=== PATIENT | female | born 1945 | race Caucasian/White ===

== ENCOUNTER 2017-08-18 13:21 | Emergency (ER) | payer OTHER, MEDICARE ==
[~2017-08-18] VITALS: Ht 165.1 cm; Wt 80.7 kg
--- NOTE | 2017-08-18 14:08 | ED GENERAL ADULT ---
History of Present Illness General Chief Complaint: General Adult Stated Complaint: PT HAD PAIN LASTING FOR 15 MINUTES ,SHAKING Source: patient Exam Limitations: no limitations Vital Signs & Intake/Output Vital Signs & Intake/Output Vital Signs Date Time Temp Pulse Resp B/P B/P Pulse O2 O2 Flow FiO2 Mean Ox Delivery Rate 08/186 98.2 70 20 137/73 97 Room Air 08/18 1800 98.4 76 16 141/76 97 Room Air 08/18 1546 99.0 68 16 146/69 98 Room Air 08/18 1328 98.8 88 18 134/81 97 Room Air Allergies Coded Allergies: No Known Allergies (08/18/17) Reconcile Medications No Known Home Medications Triage Note: PT TO ER C/C 2 DAY HX OF INTERMITTENT CHEST PALP AND LEFT SIDED BACK/CHEST PAIN W/ PROFOUND WEAKNESS. DENIES SOB, NAUSEA, + DIZZINESS Triage Nurses Notes Reviewed? yes Onset: Abrupt Duration: hour(s): Timing: recent history HPI: 08/18/17 71-year-old female presents to the emergency department complaining of back pain and then left subcostal pain followed by a feeling of weakness and near syncope. She denies any chest pain currently. No focal weakness, no headache. (Sachin Nobles DO) Past History Travel History Traveled to [place] past 21 day No Medical History Any Pertinent Medical History? see below for history Cardiovascular: aortic aneurysm Surgical History Surgical History: non-contributory Psychosocial History What is your primary language Polish Tobacco Use: Current Daily Use Daily Tobacco Use Amount/Type: => 5 Cigarettes daily Family History Hx Contributory? No (Sachin Nobles DO) Review of Systems Review of Systems Constitutional: Denies: fever. EENTM: Denies: visual changes. Respiratory: Denies: short of breath. Cardiovascular: Reports: see HPI. GI: Reports: abdominal pain. Genitourinary: Reports: see HPI. Musculoskeletal: Reports: back pain. Skin: Denies: rash. Neurological/Psychological: Reports: see HPI. Hematologic/Endocrine: Reports: no symptoms. Immunologic/Allergic: Reports: no symptoms. (Sachin Nobles DO) Physical Exam Physical Exam General Appearance: well developed/nourished, alert, awake, anxious Head: atraumatic, normal appearance Eyes: Bilateral: normal appearance, PERRL, EOMI. Ears, Nose, Throat: normal pharynx, normal ENT inspection Neck: normal inspection, supple, full range of motion Respiratory: normal breath sounds, chest non-tender, no respiratory distress Cardiovascular: regular rate/rhythm Peripheral Pulses: 4+ radial (R), 4+ radial (L) Gastrointestinal: soft, non-tender Back: normal range of motion Extremities: normal inspection Neurologic/Psych: no motor/sensory deficits, awake, alert, oriented x 3 Skin: intact, normal color, warm/dry Core Measures ACS in differential dx? No CVA/TIA Diagnosis: No Sepsis Present: No Sepsis Focused Exam Completed? No (Sachin Nobles DO) Progress Differential Diagnoses I considered the following diagnoses in my evaluation of the patient: [Aortic dissection, acute coronary syndrome, dysrhythmia, pulmonary embolism] Plan of Care: Orders Procedure Date/time Status Heart Healthy Diet 08/19 B Active TROPONIN LEVEL 08/18 1899 Complete EKG 08/18 1899 Active TROPONIN LEVEL 08/18 1328 Complete COMPREHENSIVE METABOLIC PANEL 08/18 1328 Complete CBC WITHOUT DIFFERENTIAL 08/18 1328 Complete EKG 08/18 1328 Active Laboratory Tests 08/18/17 1915: Troponin I < 0.01 08/18/17 1402: Anion Gap 10, Estimated GFR > 60, BUN/Creatinine Ratio 20.0, Glucose 91, Calcium 9.6, Total Bilirubin 0.3, AST 23, ALT 38, Alkaline Phosphatase 86, Troponin I < 0.01, Total Protein 6.9, Albumin 4.1, Globulin 2.8, Albumin/Globulin Ratio 1.5, CBC w Diff NO MAN DIFF REQ, RBC 4.62, MCV 89.6, MCH 30.1, MCHC 33.6, RDW 13.1, MPV 7.6, Gran % 68.3, Lymphocytes % 23.6, Monocytes % 6.4, Eosinophils % 0.5, Basophils % 1.2, Absolute Granulocytes 5.6, Absolute Lymphocytes 1.9, Absolute Monocytes 0.5, Absolute Eosinophils 0, Absolute Basophils 0.1 08/18/17 The patient is pending repeat troponin. She was signed out to Dr. Torres at 7 PM Initial ED EKG: NSR, nonspecific ST T wave chg (Sachin Nobles DO) Differential Diagnoses I considered the following diagnoses in my evaluation of the patient: Comments: 2nd troponin negative. EKG without ischemic changes. (Mayo Torres MD) Departure Departure Condition: Stable Clinical Impression Primary Impression: Pre-syncope Departure Forms: Customer Survey General Discharge Information Prescriptions: Current Visit Scripts No Known Home Medications Comments IMPRESSION: 1. There is a fusiform abdominal aortic aneurysm measuring 3.2 cm transverse. There is no dissection of aorta and there is no aneurysmal leak. There is also atherosclerotic vascular calcification at the major branch vessels of aorta. 2. Status post cholecystectomy. 3. Mild diverticulosis of colon. No acute change of the bowel. DICTATED BY: Arsen Boston MD DATE/TIME DICTATED:08/18/171612 PUBLICATIONS MANAGER:LUIS DATE/TIME TRANSCRIBED:08/18/171612 CONFIDENTIAL, DO NOT COPY WITHOUT APPROPRIATE AUTHORIZATION. <Electronically signed in Other Vendor System> SIGNED BY: Arsen Boston MD 08/18/17 1629 08/18/17 7 PM Patient was signed out to Dr. Torres follow the repeat troponin (Sachin Nobles DO) Departure Time of Disposition: 2015 Disposition: HOME OR SELF CARE (Mayo Torres MD) Critical Care Note Critical Care Note Critical Care Time: non-applicable (Sachin Nobles DO)
[2017-08-18 14:18] LABS: ABSOLUTE BASOPHIL COUNT 0.1 /CUMM (0.0-0.2); ABSOLUTE EOSINOPHIL COUNT 0 /CUMM (0.0-0.7); ABSOLUTE GRANULOCYTE CT 5.6 /CUMM (1.4-6.5); ABSOLUTE LYMPH COUNT 1.9 /CUMM (1.2-3.4); ABSOLUTE MONOCYTE COUNT 0.5 /CUMM (0.10-0.60); BASOPHIL % 1.2 % (0.0-2.0); EOSINOPHIL % 0.5 % (0-5); GRANULOCYTE % 68.3 % (42.2-75.2); HEMATOCRIT 41.4 % (37-47); MEAN CORPUSCULAR HGB 30.1 PG (27.0-31.0); MEAN CORPUSCULAR HGB CONC 33.6 G/DL (33.0-37.0); MEAN CORPUSCULAR VOLUME 89.6 FL (81.0-99.0); MEAN PLATELET VOLUME 7.6 FL (7.4-10.4); PLATELET COUNT 346 /CUMM (130-400); RBC DISTRIBUTION WIDTH 13.1 % (11.5-14.5); RED BLOOD CELL CT 4.62 /CUMM (4.20-5.40); WHITE BLOOD CELL COUNT 8.2 /CUMM (4.8-10.8)
--- NOTE | 2017-08-18 15:15 | RADIOLOGY REPORT ---
EXAMINATION: XR CHEST CLINICAL INFORMATION: Palpitations. Chest and back pain. COMPARISON: None TECHNIQUE: 2 views of the chest were obtained. FINDINGS: The lungs are well expanded. There is no focal consolidation, edema, or effusion. No pneumothorax. The cardiomediastinal silhouette is within normal limits. No acute osseous abnormality. IMPRESSION: No acute pulmonary findings.
--- NOTE | 2017-08-18 16:29 | CT SCAN REPORT ---
EXAMINATION: CT ANGIOGRAM ABDOMEN AND PELVIS CLINICAL INFORMATION: Abdominal pain. Abdominal aortic aneurysm. Concern for abdominal aortic aneurysm rupture. COMPARISON: None TECHNIQUE: Helical CT scan of abdomen and pelvis. IV contrast: 95 mL Optiray 320 Oral contrast: None Reconstruction: Coronal and sagittal reformatted images performed at CT scanner by the technologist. FINDINGS: VASCULAR: There is a fusiform aneurysm of the distal abdominal aorta. This has a maximal transverse dimension of 3.2 cm. There is peripheral thrombus within the lumen of the aneurysm. The patent lumen within the aneurysm measures 2.2 x 2.6 cm. There is no dissection and no aneurysmal leak. There is diffuse atherosclerotic vascular wall calcifications of the aorta. 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 There are vascular wall calcification of the common iliac and internal iliac arteries bilaterally There is slight narrowing at the origin of the celiac axis with subtle poststenotic dilatation, sagittal image 67 (602). There is atherosclerotic vascular calcifications without stenosis at the origin of the SMA. There is enhancement of the right and left renal arteries are there are mild atherosclerotic vascular calcifications at the origin of the right renal artery without stenosis. LUNG BASES: The visualized lung bases are unremarkable. LIVER, GALLBLADDER, AND BILIARY TREE: The liver is normal in size, shape, and attenuation. No suspicious focal hepatic lesion or biliary ductal dilatation is present. There is a 6 mm sharply marginated hypodense lesion at the dome of the left lobe of liver consistent with hepatic cysts. Status post cholecystectomy. Extra hepatic CBD measures 9 mm. There is no calcified stone within the bile ducts. PANCREAS: No acute change of the pancreas. No mass. No pancreatic duct dilatation. SPLEEN: Spleen normal in size and contour. No focal lesion. ADRENAL GLANDS: Adrenal glands are normal in size. No focal mass. KIDNEYS AND URETERS: The kidneys are normal in size, shape, and attenuation. No hydronephrosis, hydroureter, or calculi seen. No perinephric stranding. BLADDER: Unremarkable. GASTROINTESTINAL TRACT: There is diverticula of the sigmoid colon but no diverticulitis. There is no acute change of the bowel. There is no bowel obstruction. No bowel wall thickening or edema. There is a moderate volume of stool throughout the colon. The appendix is normal.No acute abnormality the small bowel. There is a approximate 3 cm duodenal diverticulum adjacent the second portion of the duodenum. MESENTERY: No focal inflammation. No free fluid. No free air. ABDOMINAL WALL: No significant hernia is appreciated. LYMPH NODES: Normal. PELVIC VISCERA: Unremarkable. OSSEOUS STRUCTURES: Vacuum disc phenomena L4-L5. Multilevel degenerative spondylosis of lumbar spine facet joints IMPRESSION: 1. There is a fusiform abdominal aortic aneurysm measuring 3.2 cm transverse. There is no dissection of aorta and there is no aneurysmal leak. There is also atherosclerotic vascular calcification at the major branch vessels of aorta. 2. Status post cholecystectomy. 3. Mild diverticulosis of colon. No acute change of the bowel.
[2017-08-18 19:26] VITALS: BP 137/73
== END 2017-08-18 20:32 ==
LOC: ERH 13:21
PROVIDERS: Physician Assistant
DX: R55 Syncope and collapse (principal); R07.9 Chest pain, unspecified
CPT/HCPCS: 71046; 74174; 93005; 93010

== ENCOUNTER 2017-08-27 23:11 | Inpatient (IN) | payer OTHER, MEDICARE ==
[~2017-08-27] VITALS: Ht 167.6 cm; Wt 81.6 kg
--- NOTE | 2017-08-28 00:23 | ED NEURO DEFICIT/STROKE ---
History of Present Illness General Chief Complaint: General Adult Stated Complaint: "THINK IM HAVING A STROKE" DIZZY EPISODES PER PT Source: patient, family, old records Exam Limitations: no limitations Vital Signs & Intake/Output Vital Signs & Intake/Output Vital Signs Date Time Temp Pulse Resp B/P B/P Pulse O2 O2 Flow FiO2 Mean Ox Delivery Rate 08/28 0327 97.4 77 18 136/63 97 Room Air 08/27 2327 97.9 77 18 142/98 98 Room Air ED Intake and Output 08/28 0000 08/27 1200 Intake Total Output Total Balance Patient 178 lb Weight Weight Reported by Patient Measurement Method Allergies Coded Allergies: No Known Allergies (08/18/17) Reconcile Medications No Known Home Medications Triage Note: PT FROM HOME C/O AMS FOR THE PAST FEW WEEKS. PTS DAUGHTER STATES THAT PT HAS FELT LETHARGIC, BLURRED VISION, NAUSEA, AND DISORIENTED. PT WAS SEEN HERE 1 WEEK PRIOR FOR THE SAME S/S. PT IS A&0X3. PT IS SLOW TO REACT TO QUESTIONS. PTS BP ELEVATED IN TRIAGE 142/98, PT BASELINE 110/65. PT ALSO STATED AFTER DINNER A BURNING SENSATION IN HER CHEST THAT HAS SUBSIDED SINCE. Triage Nurses Notes Reviewed? yes HPI: Patient got up this morning and felt room spinning dizziness. There is no nausea. Slowly over the next hour the symptoms resolved. Patient was asymptomatic throughout the day but then tonight she laid in bed and again had room spinning dizziness. Patient became concerned that she might be having a stroke. Patient felt that her speech was slower than normal. Patient denies any weakness or numbness. There is no headache. She states that she has slight blurry vision but she was just recently diagnosed with glaucoma and the blurry vision is not worse than normal. Past History Travel History Traveled to [place] past 21 day No Medical History Any Pertinent Medical History? see below for history Neurological: NONE EENT: glaucoma Cardiovascular: aortic aneurysm Respiratory: NONE Gastrointestinal: NONE Hepatic: NONE Renal: NONE Musculoskeletal: NONE Psychiatric: NONE Endocrine: NONE Surgical History Surgical History: non-contributory Psychosocial History What is your primary language Wallisian Tobacco Use: Current Daily Use Daily Tobacco Use Amount/Type: => 5 Cigarettes daily ETOH Use: denies use Illicit Drug Use: denies illicit drug use Family History Hx Contributory? No Review of Systems Review of Systems Constitutional: Reports: no symptoms. EENTM: Reports: no symptoms. Respiratory: Reports: no symptoms. Cardiovascular: Reports: no symptoms. GI: Reports: no symptoms. Genitourinary: Reports: no symptoms. Musculoskeletal: Reports: no symptoms. Skin: Reports: no symptoms. Neurological/Psychological: Reports: see HPI. Hematologic/Endocrine: Reports: no symptoms. Immunologic/Allergic: Reports: no symptoms. All Other Systems: Reviewed and Negative Physical Exam Physical Exam General Appearance: well developed/nourished, alert, awake, mild distress Head: atraumatic, normal appearance Eyes: Bilateral: PERRL, EOMI, other (NYSTAGMUS TO RIGHT). Ears, Nose, Throat: normal ENT inspection, moist mucous membrane, hearing grossly normal Neck: normal inspection, supple, full range of motion Respiratory: normal breath sounds, chest non-tender, no respiratory distress, lungs clear Cardiovascular: regular rate/rhythm, normal peripheral pulses Gastrointestinal: normal bowel sounds, soft, non-tender Back: normal inspection, normal range of motion Extremities: normal range of motion Psychiatric: awake, alert, oriented x 3 Cranial Nerves: normal hearing, normal speech, PERRL Coordination/Gait: normal gait Motor/Sensory: no motor/sensory deficits Skin: intact, normal color, warm/dry Core Measures CVA/TIA Diagnosis: No Sepsis Present: No Sepsis Focused Exam Completed? No Progress Differential Diagnosis: drug intoxication, electrolyte imbalance, stroke, VERTIGO Plan of Care: Orders Procedure Date/time Status Heart Healthy Diet 08/28 B Active ED Holding Orders 08/28 328 Active Admit to inpatient 08/28 328 Active Vital Signs 08/28 328 Active Code Status 08/28 328 Active TROPONIN LEVEL 08/288 Complete COMPREHENSIVE METABOLIC PANEL 08/28 37 Complete CBC WITHOUT DIFFERENTIAL 08/28 37 Complete EKG 08/27 2335 Active Laboratory Tests 08/28/17 0051: Anion Gap 11, Estimated GFR > 60, BUN/Creatinine Ratio 22.9, Glucose 104 H, Calcium 9.8, Total Bilirubin 0.2, AST 26, ALT 39, Alkaline Phosphatase 82, Troponin I < 0.01, Total Protein 7.1, Albumin 4.2, Globulin 2.9, Albumin/ Globulin Ratio 1.4, CBC w Diff NO MAN DIFF REQ, RBC 4.59, MCV 89.2, MCH 30.2, MCHC 33.8, RDW 13.4, MPV 7.2 L, Gran % 67.1, Lymphocytes % 25.6, Monocytes % 5.8, Eosinophils % 0.9, Basophils % 0.6, Absolute Granulocytes 6.6 H, Absolute Lymphocytes 2.5, Absolute Monocytes 0.6, Absolute Eosinophils 0.1, Absolute Basophils 0.1 Diagnostic Imaging: Viewed by Me: CT Scan. Discussed w/RAD: CT Scan. Radiology Impression: PATIENT: ERIC STACK PRESENT AGE: 71 PATIENT ACCOUNT NO: [id number] : 47 LOCATION: [facility] ORDERING PHYSICIAN: Jose Arevalo MD SERVICE DATE: 08/27/17 EXAM TYPE: CAT - CT HEAD WO IV CONTRAST EXAMINATION: CT HEAD WITHOUT CONTRAST CLINICAL INFORMATION: Episode of confusion. Question TIA. COMPARISON: None. TECHNIQUE: Contiguous axial imaging was performed from the skull base to vertex without intravenous contrast. DLP: 630 mGy-cm. FINDINGS: The study is somewhat motion limited. There is no evidence of acute intracranial hemorrhage or territorial infarction. No abnormal mass effect or midline shift is seen. Dorsey to white matter differentiation is well preserved. No extra-axial fluid collections are identified. No hydrocephalus. No significant volume loss. There is no abnormal attenuation within the brain parenchyma. The osseous structures and soft tissues are normal. The mastoid air cells and visualized portions of the paranasal sinuses are well aerated. IMPRESSION: No acute intracranial pathology. DICTATED BY: Kwaku Siu MD DATE/TIME DICTATED:08/28/1716 LABELS MOLDER: LUIS DATE/TIME TRANSCRIBED:08/28/1716 CONFIDENTIAL, DO NOT COPY WITHOUT APPROPRIATE AUTHORIZATION. <Electronically signed in Other Vendor System> SIGNED BY: Kwaku Siu MD 08/28/17 0021 Initial ED EKG: NSR, no ST T wave changes Prior EKG: unchanged Comments: No relief after 2 doses of meclizine. Will try Valium. Departure Departure Disposition: STILL A PATIENT Condition: Stable Clinical Impression Primary Impression: Vertigo Referrals: Patient Has No Primary Care Dr (PCP/Family) Departure Forms: Customer Survey General Discharge Information Prescriptions: Current Visit Scripts No Known Home Medications Admission Note Spoke With: Sukumar Boone MD Documentation of Exam: Documentation of any treatments & extenuating circumstances including Concerns Regarding Discharge (functional status, medication knowledge or non-compliance, living conditions, etc.) that warrant an admission rather than observation: [ Telemetry monitoring, serial enzymes, neurology consultation, MRI]
[2017-08-28 01:10] LABS: ABSOLUTE BASOPHIL COUNT 0.1 /CUMM (0.0-0.2); ABSOLUTE EOSINOPHIL COUNT 0.1 /CUMM (0.0-0.7); ABSOLUTE GRANULOCYTE CT 6.6 /CUMM (1.4-6.5); ABSOLUTE LYMPH COUNT 2.5 /CUMM (1.2-3.4); ABSOLUTE MONOCYTE COUNT 0.6 /CUMM (0.10-0.60); BASOPHIL % 0.6 % (0.0-2.0); EOSINOPHIL % 0.9 % (0-5); GRANULOCYTE % 67.1 % (42.2-75.2); HEMATOCRIT 40.9 % (37-47); MEAN CORPUSCULAR HGB 30.2 PG (27.0-31.0); MEAN CORPUSCULAR HGB CONC 33.8 G/DL (33.0-37.0); MEAN CORPUSCULAR VOLUME 89.2 FL (81.0-99.0); MEAN PLATELET VOLUME 7.2 FL (7.4-10.4); PLATELET COUNT 326 /CUMM (130-400); RBC DISTRIBUTION WIDTH 13.4 % (11.5-14.5); RED BLOOD CELL CT 4.59 /CUMM (4.20-5.40); WHITE BLOOD CELL COUNT 9.8 /CUMM (4.8-10.8)
--- NOTE | 2017-08-28 05:30 | History & Physical ---
Juan J Rich 08/28/17 0529: General Information and HPI Exam Limitations: no limitations History of Present Illness: Ms. Welch is a pleasant 71-year-old female with a past medical history of aortic aneurysm and glaucoma. She presents to the ED after having what she describes as a dizzy spell/mini stroke. She woke up this morning and when she was getting out of bed she felt a sudden sense of the world spinning so dramatic that she had to lie back down for about 30 minutes. She then got up and tried to go to the bathroom and had considerable trouble due to the dizziness. She noticed that her speech was much slower than normal and that it took a significant amount of time to find words compared to her baseline. Her daughters also agree that her speech and idea-formation was delayed. She was aware of the impediement and denies any confusion. She has been having palpitations for the past 2 weeks. She had her daughters also believe that she has been experiencing vertigo on and off for the past 8 months symptoms were never bad like today. She endorses a slight headache, fatigue and neck pain. She also has some blurry vision but she believes that is related to her glaucoma which she started taking medication for 3 days ago, patient denies any nausea, vomiting, weakness, numbness, chest pain, shortness of breath, loss of consciousness, loss of bladder or bowel functions. Patient has a significant family history of strokes especially on the mother's side. Allergies/Medications Home Med list No Known Home Medications Past History Travel History Traveled to [place] past 21 day No Medical History Blood Transfusion Hx: Yes Neurological: NONE EENT: glaucoma Cardiovascular: aortic aneurysm Respiratory: NONE Gastrointestinal: NONE Hepatic: NONE Renal: NONE Musculoskeletal: NONE Psychiatric: NONE Endocrine: NONE Blood Disorders: NONE Cancer(s): melanoma CLEANING ASSOCIATE/Reproductive: NONE History of MRSA: No History of VRE: No History of CDIFF: Yes Isolation History: Standard Surgical History Surgical History: non-contributory Past Family/Social History Psychosocial History Where do you live? Home Services at Home: None Smoking Status: Current Everyday Smoker (30 years) ETOH Use: denies use Illicit Drug Use: denies illicit drug use Review of Systems Review of Systems Constitutional: Reports: see HPI, weakness. Denies: chills, diaphoresis. EENTM: Reports: visual changes, eye pain. Respiratory: Reports: short of breath. Denies: no symptoms. GI: Reports: nausea. Denies: constipation, diarrhea, distention. Genitourinary: Reports: no symptoms. Musculoskeletal: Reports: neck pain. Skin: Reports: no symptoms. Neurological/Psychological: Reports: headache, numbness. Denies: depressed, dementia, petit mal seizures, tingling, tremors. Exam & Diagnostic Data Last 24 Hrs of Vital Signs/I&O Vital Signs Date Time Temp Pulse Resp B/P B/P Pulse O2 O2 Flow FiO2 Mean Ox Delivery Rate 08/28 0638 97.6 77 20 146/94 95 Room Air 08/28 0347 97.5 73 18 137/68 96 Room Air 08/28 0327 97.4 77 18 136/63 97 Room Air 08/27 2327 97.9 77 18 142/98 98 Room Air Intake & Output 08/28 1600 08/28 0800 08/28 0000 Intake Total Output Total Balance Patient 178 lb 178 lb Weight Weight Reported by Patient Reported by Patient Measurement Method Physical Exam General Appearance Alert, Oriented X3, Cooperative, No Acute Distress Skin No Rashes Skin Temp/Moisture Exam: Warm/Dry Sepsis Skin Exam (color): Normal for Ethnicity, Cyanotic HEENT Atraumatic, PERRLA, EOMI, Mucous Membr. moist/pink Neck Supple, No JVD Lymphatic Axillary nl, Cervical nl Cardiovascular Regular Rate, Normal S1, Normal S2 Lungs Clear to Auscultation Abdomen Normal Bowel Sounds, Soft, No Tenderness Neurological Normal Speech, Strength at 5/5 X4 Ext, Normal Tone, Sensation Intact, Cranial Nerves 3-12 NL, Reflexes 2+ Extremities No Clubbing, No Cyanosis, No Edema Last 24 Hrs of Labs/Fareed: Laboratory Tests 08/28/17 0712: Troponin I < 0.01 08/28/17 0051: Anion Gap 11, Estimated GFR > 60, BUN/Creatinine Ratio 22.9, Glucose 104 H, Hemoglobin A1c Pending, Calcium 9.8, Total Bilirubin 0.2, AST 26, ALT 39, Alkaline Phosphatase 82, Troponin I < 0.01, Total Protein 7.1, Albumin 4.2, Globulin 2.9, Albumin/Globulin Ratio 1.4, Triglycerides 253 H, Cholesterol 218 H, LDL Cholesterol, Calc 133 H, HDL Cholesterol 35 L, Cholesterol/HDL Ratio 6 H, CBC w Diff NO MAN DIFF REQ, RBC 4.59, MCV 89.2, MCH 30.2, MCHC 33.8, RDW 13.4 , MPV 7.2 L, Gran % 67.1, Lymphocytes % 25.6, Monocytes % 5.8, Eosinophils % 0.9, Basophils % 0.6, Absolute Granulocytes 6.6 H, Absolute Lymphocytes 2.5, Absolute Monocytes 0.6, Absolute Eosinophils 0.1, Absolute Basophils 0.1 Assessment/Plan Assessment: Vitals on admission were temp 97.9, HR 77, RR 18, BP 142/98 and O2 sats 98% on room air. Labs Unremarkable. CT Head negative for any acute Pathology. Assessment: Ms. Welch is a pleasant 71-year-old female with a past medical history of aortic aneurysm and glaucoma. She presents to the ED after having what she describes as a dizzy spell/mini stroke. Problems: 1. Vertigo 2. Possible TIA vs Stroke -Admit to telemetry floor -Start on aspirin -Meclizine as needed -Troponins and EKG 3 -PT consult to evaluate -Doppler carotids bilaterally -MRA head and neck -Consult neurology -Consult PT -Bedside swallow eval, advance diet as rec -DVT prophylaxis -Full Code As Ranked By This Provider Problem List: 1. Vertigo Core Measures/Misc (11/07) Acute Coronary Syndrome ACS Diagnosis: No Congestive Heart Failure Congestive Heart Failure Diagnosis No Cerebrovascular Accident CVA/TIA Diagnosis: Yes Swallow Evaluation Pass Current/Past Hx AFib/AFlutter No VTE (View Protocol) VTE Risk Factors Age>40 No Mechanical VTE Prophylaxis d/t N/A MechProphylax Ordered No VTE Pharm Prophylaxis d/t NA PharmProphylax ordered Sepsis (View protocol) Sepsis Present: No If YES complete Sepsis Event Note If YES complete Sepsis Event Note Ilda JACKSON,Lise 08/28/17 0554: Core Measures/Misc (11/07) Sepsis (View protocol) If YES complete Sepsis Event Note If YES complete Sepsis Event Note Resident Review Statement Resident Statement: examined this patient, discussed with international logistics coordinator, agreed with international logistics coordinator, discussed with family, reviewed EMR data (avail), discussed with nursing , reviewed images Other Findings: Mrs. Welch is a 71-year-old lady with past medical history significant for glaucoma and abdominal aortic aneurysm only presents with dizziness starting the morning of presentation. According to the patient she woke up in her usual state of health but when she tried to get up from the bed she felt extremely dizzy and and felt like the whole room was upside down. She also blacked out for a few seconds but never lost consciousness. She is recently diagnosed with glaucoma and has baseline blurry vision, unsure if her vision was any worse from her baseline at that time. The daughter also mentions "to and fro" motion of her eyes and feeling tired and lethargic afterwards. She also reports occasional palpitations that has been going on for the past 2 weeks. She did feel palpitations at the time of dizziness as well. Apparently the episodes of dizziness has been going on and off for the past 8 months. Denies any facial droop, numbness or weakness or loss of sensation in any part of the body, confusion, or any seizure-like activity. She did feel drained/lethargic afterwards. Episode lasted for 20-30 minutes and her dizziness got better but never went away completely. She had another similar episode of dizziness when she was trying to go to bed around 10 PM she felt like she was having a stroke which got her worried and she decided to come to the ER. She continues to have the dizziness and difficulty finding words. Vitals on admission were temp 97.9, HR 77, RR 18, BP 142/98 and O2 sats 98% on room air. Labs Unremarkable. CT Head negative for any acute Pathology. Problem List; 1. Dizziness 2. ?? TIA, r/o stroke - Patient has a strong family Hx of TIA/ stroke and patient continues to have the dizziness and have difficulty finding words. - Admit to Telemetry Floor - Give 1 dose of Aspirin and Statin - Meclizine as needed for dizziness - Obtain MRA head and neck - Obtain echocardiogram - Troponins and EKG 3 - Check lipid panel and A1c level - Neurology consult - PT consult. - Patient passed bedside swallow, start on regular diet. - Nicotine Patch as patient is a current smoker. DVT Prophylaxis; ALPS and S/C Lovenox Patient is full code. Sukumar Boone MD 08/28/17 0603: General Information and HPI MD Statement: I have seen and personally examined ERIC WELCH and documented this H&P. The patient is a 71 year old F who presented with a patient stated chief complaint of [dizziness]. Source of Information: patient Allergies/Medications Allergies: Coded Allergies: No Known Allergies (08/18/17) Past History Medical History EENT: glaucoma Surgical History Surgical History: cholecystectomy, hysterectomy Past Family/Social History Psychosocial History Smoking Status: Current Everyday Smoker (1PPD) ETOH Use: denies use Illicit Drug Use: denies illicit drug use Employment History Employment Retired Review of Systems Review of Systems Constitutional: Reports: see HPI. Exam & Diagnostic Data Last 24 Hrs of Vital Signs/I&O Vital Signs Date Time Temp Pulse Resp B/P B/P Pulse O2 O2 Flow FiO2 Mean Ox Delivery Rate 08/28 0347 97.5 73 18 137/68 96 Room Air 08/28 0327 97.4 77 18 136/63 97 Room Air 08/27 2327 97.9 77 18 142/98 98 Room Air Intake & Output 08/28 0800 08/28 0000 08/27 1600 Intake Total Output Total Balance Patient 178 lb 178 lb Weight Weight Reported by Patient Reported by Patient Measurement Method Physical Exam General Appearance Alert, Oriented X3, Cooperative, No Acute Distress Skin No Rashes HEENT Atraumatic, PERRLA, EOMI Neck Supple, No JVD Lymphatic Axillary nl, Cervical nl Cardiovascular Regular Rate, Normal S1, Normal S2, No Murmurs Lungs Clear to Auscultation, Normal Air Movement Abdomen Normal Bowel Sounds, Soft, No Tenderness, No Hepatospenomegaly, No Masses Neurological Normal Gait, Normal Speech, Strength at 5/5 X4 Ext, Normal Tone, Sensation Intact, Cranial Nerves 3-12 NL, Reflexes 2+ Extremities No Clubbing, No Cyanosis, No Edema Last 24 Hrs of Labs/Fareed: Laboratory Tests 08/28/17 0051: Anion Gap 11, Estimated GFR > 60, BUN/Creatinine Ratio 22.9, Glucose 104 H, Hemoglobin A1c Pending, Calcium 9.8, Total Bilirubin 0.2, AST 26, ALT 39, Alkaline Phosphatase 82, Troponin I < 0.01, Total Protein 7.1, Albumin 4.2, Globulin 2.9, Albumin/Globulin Ratio 1.4, Triglycerides Pending, Cholesterol Pending, LDL Cholesterol, Calc Pending, HDL Cholesterol Pending, Cholesterol/HDL Ratio Pending, CBC w Diff NO MAN DIFF REQ, RBC 4.59, MCV 89.2, MCH 30.2, MCHC 33.8, RDW 13.4, MPV 7.2 L, Gran % 67.1, Lymphocytes % 25.6, Monocytes % 5.8, Eosinophils % 0.9, Basophils % 0.6, Absolute Granulocytes 6.6 H, Absolute Lymphocytes 2.5, Absolute Monocytes 0.6, Absolute Eosinophils 0.1, Absolute Basophils 0.1 Core Measures/Misc (11/07) Sepsis (View protocol) If YES complete Sepsis Event Note If YES complete Sepsis Event Note Attending MD Review Statement Attending Statement Attending MD Statement: examined this patient, discuss w/resident/PA/TEAM SPORTS SALES ASSOCIATE, amended to note Attending Assessment/Plan: This patient is a 71-year-old white female who is only on medications for glaucoma, has a lifelong history of tobacco abuse and a family history significant for strokes. She has been having some difficulty for almost 8 months. This week has been particularly difficult with episodes of dizziness. Today was particularly bad when she awoke this morning with the room spinning. The symptoms resolved but as soon as she went to bed tonight they returned and she was brought to the emergency department. While in the emergency department her vital signs were stable with a mild elevation in her blood pressure. Her labs are essentially normal. Treatment with Antivert and Valium did not resolve the vertigo. The CT scan of her head did not demonstrate any acute intracranial pathology. The patient will be placed on telemetry, started on aspirin and neurology has been consult. She will be worked up with carotid ultrasound, echo , neurology consult and will likely need an MRI/MRA of her head and neck.
[2017-08-28 06:38] VITALS: BP 146/94
--- NOTE | 2017-08-28 09:53 | PN- Att Addend ---
Attending Addendum Attending Brief Note Patient seen and examined. Sitting up eating breakfast. No events overnight reported by nursing staff. She is in normal sinus rhythm with no events on telemetry monitoring. Patient reports that for the past few weeks she has been having blurry vision. She states she was recently diagnosed with glaucoma was prescribed eyedrops and has seen no significant improvement after using them for the past 3 days following the initial prescription. In addition to the symptoms she reports feeling of being off balance and almost falling. This morning she continues to report dizziness. She reports no improvement with use of meclizine overnight. Orthostatic vitals this morning were 138/90 sitting and 118/80 standing. Vital Signs Date Time Temp Pulse Resp B/P B/P Pulse O2 O2 Flow FiO2 Mean Ox Delivery Rate 08/28 0638 97.6 77 20 146/94 95 Room Air 08/28 0347 97.5 73 18 137/68 96 Room Air 08/28 0327 97.4 77 18 136/63 97 Room Air 08/27 2327 97.9 77 18 142/98 98 Room Air General appearance: Well-developed and not in any acute distress. HEENT: Anicteric, no pallor, pupils equal and reactive. No nystagmus. Neck: Supple with no jugular venous distention. Heart: S1-S2 regular with no audible murmur. Lungs: Adequate and symmetric air entry bilaterally with no added sounds. Abdomen: Nondistended with normal bowel sounds. Soft, nontender with no palpable masses. Extremities: No pedal edema. No cyanosis. Skin: Intact Laboratory Tests 08/28/17 0712: Troponin I < 0.01 08/28/17 0051: Anion Gap 11, Estimated GFR > 60, BUN/Creatinine Ratio 22.9, Glucose 104 H, Hemoglobin A1c Pending, Calcium 9.8, Total Bilirubin 0.2, AST 26, ALT 39, Alkaline Phosphatase 82, Troponin I < 0.01, Total Protein 7.1, Albumin 4.2, Globulin 2.9, Albumin/Globulin Ratio 1.4, Triglycerides 253 H, Cholesterol 218 H, LDL Cholesterol, Calc 133 H, HDL Cholesterol 35 L, Cholesterol/HDL Ratio 6 H, CBC w Diff NO MAN DIFF REQ, RBC 4.59, MCV 89.2, MCH 30.2, MCHC 33.8, RDW 13.4 , MPV 7.2 L, Gran % 67.1, Lymphocytes % 25.6, Monocytes % 5.8, Eosinophils % 0.9, Basophils % 0.6, Absolute Granulocytes 6.6 H, Absolute Lymphocytes 2.5, Absolute Monocytes 0.6, Absolute Eosinophils 0.1, Absolute Basophils 0.1 Problems: 1. Dizziness. Plan: -Patient has positive orthostatic blood pressure changes this morning. She does not appear volume depleted. She is certainly not bleeding. Recommend hydration with normal saline at 1 25 cc an hour and repeating orthostatic blood pressure in a.m. -Follow-up echocardiogram to rule out structural heart disease. -Add cortisol level to a.m. labs (7AM LABS). If levels are less than 10 obtain cosyntropin stimulation test and endocrinology consult. -Repeat a.m. fasting lipid panel
[2017-08-28 15:17] VITALS: BP 128/84
--- NOTE | 2017-08-28 16:06 | Cons- Neurology ---
General Information and HPI Consulting Request Date of Consult: 08/28/17 Requested By: Sukumar Boone MD History of Present Illness: 71-year-old female with at least a several month history of intermittent vertigo invariably occurring with change of head position. When perfectly still, she is not dizzy. She was admitted after similar symptoms upon awakening and attempting to arise. She will also admit to intermittent palpitations and "brain fog" as of late. She has no prior history of stroke. Imaging upon admission was negative. Allergies/Medications Allergies: Coded Allergies: No Known Allergies (08/18/17) Home Med List: No Known Home Medications Review of Systems Review of Systems: Notable for vertigo, intermittent palpitations and brain fog. 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 Home Services at Home: None Smoking Status: Current Everyday Smoker (30 years) ETOH Use: denies use Illicit Drug Use: denies illicit drug use Employment History Employment: Retired Exam & Diagnostic Data Vital Signs and I&O Vital Signs Date Time Temp Pulse Resp B/P B/P Pulse O2 O2 Flow FiO2 Mean Ox Delivery Rate 08/28 1517 97.7 76 18 128/84 95 Room Air 08/28 0638 97.6 77 20 146/94 95 Room Air / 0347 97.5 73 18 137/68 96 Room Air / 0327 97.4 77 18 136/63 97 Room Air 08/27 2327 97.9 77 18 142/98 98 Room Air Intake & Output 08/28 1600 /08 0800 07/08 0000 Intake Total 460 Output Total Balance 460 Intake, IV 10 Intake, Oral 450 Patient 178 lb 178 lb Weight Weight Reported by Patient Reported by Patient Measurement Method Pleasant middle-aged female in no acute distress. The head was normocephalic and atraumatic. Higher cortical function was grossly intact. Speech was fluent. Pupils were equal and reactive. Extraocular movements were full. There was no nystagmus in primary garcia of gaze however with performance of the DixHallpike maneuver, head down and to the right, we note the presence of striking rotatory nystagmus which presented after a brief latency and resolved within 15 seconds. Facial strength and sensation was intact. Hearing was grossly normal. Tongue was midline. Motor examination showed no drift of the upper extremities. There was no focal or lateralizing weakness. Deep tendon reflexes were symmetric. Plantar responses were flexor. Sensory examination was normal to primary modalities. Fine finger movements and rapid alternating movements performed normally. There was no ataxia on [id number] testing. Assessment/Plan Assessment: #1 benign paroxysmal positional vertigo #2 anxiety Recommendations: The patient should undergo a course of vestibular rehabilitation for canalith repositioning. I do not believe that further neurodiagnostic studies are indicated. I have attempted to reassure the patient that this indeed appears to be a benign situation and not indicative of stroke syndrome. Please feel free to call with any further questions. Consult Acknowledgment - Thank you for your consult request.
[2017-08-28 22:59] VITALS: BP 132/82
[2017-08-29 06:47] VITALS: BP 142/82
--- NOTE | 2017-08-29 07:52 | PN- Housestaff ---
Dania Arevalo 08/29/17 0751: Subjective Follow-up For: bpv Complaints: she felt dizzy when getting up from bed/laying down Subjective: Positional vertigo Review of Systems Constitutional: Reports: see HPI. Objective Last 24 Hrs of Vital Signs/I&O Vital Signs Date Time Temp Pulse Resp B/P B/P Pulse O2 O2 Flow FiO2 Mean Ox Delivery Rate 08/29 1418 97.9 78 18 150/80 95 Room Air 08/29 0647 97.7 73 18 142/82 96 Room Air 08/28 2259 97.6 71 18 132/82 96 Room Air Intake & Output 08/29 1600 08/29 0800 08/29 0000 Intake Total 600 595 Output Total Balance 600 595 Intake, IV 375 Intake, Oral 600 220 Patient 180 lb Weight Physical Exam General Appearance: Alert, Oriented X3, Cooperative, No Acute Distress Skin: No Rashes, No Breakdown, No Significant Lesion Skin Temp/Moisture Exam: Cool/Dry HEENT: Atraumatic, Nystagmus upon checking EOMI while laying in bed Neck: Supple Cardiovascular: Regular Rate, Normal S1, Normal S2, No Murmurs Lungs: Clear to Auscultation, Normal Air Movement Abdomen: Normal Bowel Sounds, Soft, No Tenderness Neurological: Normal Speech, Strength at 5/5 X4 Ext, Normal Tone Extremities: No Clubbing, No Cyanosis, No Edema Assessment/Plan Assessment: Pt is a 71-year-old lady with PMH of glaucoma and abdominal aortic aneurysm, presents with dizziness x1day. She tried to get up from bed upon waking and felt v dizzy, felt the whole room was upside down. She also blacked out for a few seconds but never lost consciousness. The daughter also mentions "to and fro " motion of her eyes and feeling tired and lethargic afterwards. The Episode lasted for 20-30 minutes and her dizziness got better but never went away completely. The episodes of dizziness have been going on for the pasgt 8 mo. Vitals: temp 97.7, pulse 73, HR 18, bp 142/82,96%on RA Orthostatic vitals: Sitting bp 112/70 HR 74. Standing bp 108/78 HR 87. Labs:wbc 5.8, hgb 13.6, hct 39.7, plt 288, na 144, k 4.5, cl 110, bicarb 24, bun 14, cr 0.6, cortisol AM 5.5, Cortisol PM after cosyntropin 22.3. B12 576, Folate 10.7, TSH 1.020, Free T4 1.02 USG Carotid: 1. RIGHT: Minimal, nonhemodynamically significant stenosis of the proximal right internal carotid artery corresponding to a 0-49% stenosis by velocity criteria. 2. LEFT: Minimal, nonhemodynamically significant stenosis of the proximal left internal carotid artery corresponding to a 0-49% stenosis by velocity criteria. 3. No evidence for hemodynamically significant stenosis in the external carotid arteries. 4. A 1.5 cm cystic structure was incidentally noted within the right parotid gland. This can be further evaluated with a dedicated ultrasound of this region if clinically indicated. MRA Head and neck w and wo contrast: No focal stenoses, aneurysms or vascular malformations are demonstrated in the cervical or intracranial vasculature. Problems: 1. BPV 2. Orthostatic hypotension 3. Rt thyroid lobe enlargement 4. Parotid gland cystic lesion Plan: -She is off tele -Neurology consult -MRA head and neck with & wo contrast -endo consult -Cosyntropin stim test -TSH, Free T4, Anti TPO, Anti-thyroglobulin abs -Orthostatic vitals -Vestibular rehab -PT consult -Nicotine patch -Mini Mental Status examination -Diet: regular -DVT Prophylaxis; ALPS and S/C Lovenox -code:full code Problem List: 1. Vertigo Pain Ratin Pain Location: none Pain Goal: Remain pain free Pain Plan: n/a Tomorrow's Labs & Rationales: not needed Kyung Álvarez MDrosario 08/29/17 1345: Attending MD Review Statement Attending Statement Attending MD Statement: examined this patient, discuss w/resident/PA/FINISH SAW OPERATOR, agreed w/resident/PA/FINISH SAW OPERATOR, reviewed EMR data (avail), discussed with nursing, discussed with case mgmt, amended to note Attending Assessment/Plan: Patient seen and examined. No issues overnight reported by nursing staff. No events on telemetry monitoring. She continues to report dizziness. Worse with position changes. She was seen by the neurology service yesterday was noted to have nystagmus following Sheridan-Hallpike maneuver. This morning she is very hesitant about position changes. She reports that her symptoms are more manageable when she gets up out of bed in a very slow and calculated manner. Cortisol level was checked yesterday. She does have a cortisol level added onto her a.m. labs. There appears that her cortisol level may have been drawn at around 1 AM. The value obtained will be normal for the time of day. She is scheduled to have a cosyntropin stim vision test today. MRI of the head with MRA of the head and neck done today shows no evidence of an acute stroke. Carotid vessels show no significant disease. Incidentally noted on carotid ultrasound is a questionable cystic lesion in the parotid gland. She was seen by the endocrinology service today. She is found to have enlargement of the right lobe of the thyroid. Ultrasound of the thyroid has been ordered. Patient complains of decreased memory and she is very concerned about this. Problems: 1. Vertigo; appears to be secondary to BPV. 2. Orthostatic hypotension 3. Enlargement of the right thyroid lobe. 4. Parotid gland cystic lesion. Plan: -Discontinue telemetry monitoring. -PT/OT evaluation. -Obtain thyroid ultrasound. -Outpatient ENT referral and follow-up. -Follow-up results of cosyntropin solution test.
[2017-08-29 08:19] LABS: ABSOLUTE BASOPHIL COUNT 0 /CUMM (0.0-0.2); ABSOLUTE EOSINOPHIL COUNT 0.1 /CUMM (0.0-0.7); ABSOLUTE LYMPH COUNT 2.2 /CUMM (1.2-3.4); ABSOLUTE MONOCYTE COUNT 0.5 /CUMM (0.10-0.60); BASOPHIL % 0.6 % (0.0-2.0); EOSINOPHIL % 1.3 % (0-5); GRANULOCYTE % 51.2 % (42.2-75.2); HEMATOCRIT 39.7 % (37-47); MEAN CORPUSCULAR HGB 30.2 PG (27.0-31.0); MEAN CORPUSCULAR HGB CONC 34.3 G/DL (33.0-37.0); MEAN CORPUSCULAR VOLUME 88.1 FL (81.0-99.0); MEAN PLATELET VOLUME 7.5 FL (7.4-10.4); PLATELET COUNT 288 /CUMM (130-400); RBC DISTRIBUTION WIDTH 13.5 % (11.5-14.5); RED BLOOD CELL CT 4.51 /CUMM (4.20-5.40); WHITE BLOOD CELL COUNT 5.8 /CUMM (4.8-10.8)
--- NOTE | 2017-08-29 08:55 | Cons- Endocrinology ---
General Information and HPI Consulting Request Date of Consult: 08/29/17 Requested By: medical team Reason for Consult: low cortisol Source of Information: patient, family, old records Exam Limitations: no limitations History of Present Illness: This 71-year-old woman came to the emergency room because of a sensation that the room was going around when she was getting out of bed. She noticed that her balance was poor. She also felt the that it bothered her speech. She complains of some difficulty with memory. She has had some previous episodes of vertigo. The patient was in the emergency room on August 18, 2017 with an episode of abdominal and back pain and a feeling of extreme weakness at that time. Her CT scan of the abdomen was negative. More recent studies show CT scan scan of the head revealing no significant abnormalities. The patient does smoke a pack a day. Interestingly her mother has a history of thyroid disease and has had thyroid surgery The patient's cortisol level at 1 AM was 5.5. Allergies/Medications Allergies: Coded Allergies: No Known Allergies (08/18/17) Home Med List: No Known Home Medications Current Medications: Current Medications Sig/Koki Start time Last Medication Dose Route Stop Time Status Admin Acetaminophen 650 MG Q6P PRN 08/28 0500 AC PO Atorvastatin Calcium 80 MG ONCE ONE 08/28 1700 DC / PO 08/28 1701 1739 Cosyntropin 0.25 MG 1200 08/29 1200 AC IV 08/29 1201 Enoxaparin Sodium 40 MG DAILY 08/28 0900 AC 08/29 SC 0903 Nicotine 14 MG DAILY 08/29 0900 AC TOP Oxycodone/ 1 TAB Q6P PRN 08/28 0500 DC Acetaminophen PO Sodium Chloride 1,000 ML Q8H 08/28 1345 DC / IV 08/28 2144 1500 Review of Systems Review of Systems Constitutional: Denies: chills, fever. Cardiovascular: Denies: chest pain. Respiratory: Denies: short of breath. Genitourinary: Denies: dysuria. Skin: Denies: lesions. Neurological/Psychological: Reports: anxiety, cognitive dysfunction, other (vertigo). Past History Travel History Traveled to [place] past 21 day No Medical History Blood Transfusion Hx: Yes Neurological: NONE EENT: glaucoma Cardiovascular: aortic aneurysm Respiratory: NONE Gastrointestinal: NONE Hepatic: NONE Renal: NONE Musculoskeletal: NONE Psychiatric: NONE Endocrine: NONE Blood Disorders: NONE Cancer(s): melanoma DEVELOPMENT TEAM LEAD/Reproductive: NONE Surgical History Surgical History: cholecystectomy, hysterectomy Psychosocial History Where Do You Live? Home Services at Home: None Smoking Status: Current Everyday Smoker (30 years) ETOH Use: denies use Illicit Drug Use: denies illicit drug use Employment History Employment: Retired Exam & Diagnostic Data Last 24 Hrs of Vital Signs/I&O Vital Signs Date Time Temp Pulse Resp B/P B/P Pulse O2 O2 Flow FiO2 Mean Ox Delivery Rate 08/29 0547 97.7 73 18 142/82 96 Room Air 08/28 2259 97.6 71 18 132/82 96 Room Air 08/28 1517 97.7 76 18 128/84 95 Room Air Intake & Output 08/29 1600 08/29 0800 08/29 0000 Intake Total 595 Output Total Balance 595 Intake, IV 375 Intake, Oral 220 Patient 180 lb Weight Physical Exam General Appearance: alert, awake, comfortable Head: normal appearance Neck: right lobe of thyroid enlarged Respiratory: normal breath sounds Cardiovascular: regular rate/rhythm Gastrointestinal: normal bowel sounds, soft Extremities: normal inspection Neurologic/Psych: awake, alert, oriented x 3 Labs/Fareed Results: Laboratory Tests 08/29 08/28 08/28 0628 1325 0712 Chemistry Sodium (137 - 145 mmol/L) 144 Potassium (3.5 - 5.1 mmol/L) 4.5 Chloride (98 - 107 mmol/L) 110 H Carbon Dioxide (22 - 30 mmol/L) 24 Anion Gap (5 - 16) 10 BUN (7 - 17 mg/dL) 14 Creatinine (0.5 - 1.0 mg/dL) 0.6 Estimated GFR (>60 ml/min) > 60 BUN/Creatinine Ratio (7 - 25 %) 23.3 Troponin I (< 0.11 ng/ml) < 0.01 < 0.01 Triglycerides (<150 mg/dL) 182 H Cholesterol (<200 MG/DL) 197 LDL Cholesterol, Calc (65 - 129 mg/dL) 131 H HDL Cholesterol (40 - 60 mg/dL) 30 L Cholesterol/HDL Ratio (0.00 - 4.23 %) 7 H Hematology CBC w Diff NO MAN DIFF REQ WBC (4.8 - 10.8 /CUMM) 5.8 RBC (4.20 - 5.40 /CUMM) 4.51 Hgb (12.0 - 16.0 G/DL) 13.6 Hct (37 - 47 %) 39.7 MCV (81.0 - 99.0 FL) 88.1 MCH (27.0 - 31.0 PG) 30.2 MCHC (33.0 - 37.0 G/DL) 34.3 RDW (11.5 - 14.5 %) 13.5 Plt Count (130 - 400 /CUMM) 288 MPV (7.4 - 10.4 FL) 7.5 Gran % (42.2 - 75.2 %) 51.2 Lymphocytes % (20.5 - 51.1 %) 38.2 Monocytes % (1.7 - 9.3 %) 8.7 Eosinophils % (0 - 5 %) 1.3 Basophils % (0.0 - 2.0 %) 0.6 Absolute Granulocytes (1.4 - 6.5 /CUMM) 3.0 Absolute Lymphocytes (1.2 - 3.4 /CUMM) 2.2 Absolute Monocytes (0.10 - 0.60 /CUMM) 0.5 Absolute Eosinophils (0.0 - 0.7 /CUMM) 0.1 Absolute Basophils (0.0 - 0.2 /CUMM) 0 07/08 0051 Chemistry Sodium (137 - 145 mmol/L) 142 Potassium (3.5 - 5.1 mmol/L) 4.1 Chloride (98 - 107 mmol/L) 105 Carbon Dioxide (22 - 30 mmol/L) 26 Anion Gap (5 - 16) 11 BUN (7 - 17 mg/dL) 16 Creatinine (0.5 - 1.0 mg/dL) 0.7 Estimated GFR (>60 ml/min) > 60 BUN/Creatinine Ratio (7 - 25 %) 22.9 Glucose (65 - 99 mg/dL) 104 H Hemoglobin A1c (4.2 - 5.8 %) 5.9 H Calcium (8.4 - 10.2 mg/dL) 9.8 Total Bilirubin (0.2 - 1.3 mg/dL) 0.2 AST (14 - 36 U/L) 26 ALT (9 - 52 U/L) 39 Alkaline Phosphatase (<127 U/L) 82 Troponin I (< 0.11 ng/ml) < 0.01 Total Protein (6.3 - 8.2 g/dL) 7.1 Albumin (3.5 - 5.0 g/dL) 4.2 Globulin (1.9 - 4.2 gm/dL) 2.9 Albumin/Globulin Ratio (1.1 - 2.2 %) 1.4 Triglycerides (<150 mg/dL) 253 H Cholesterol (<200 MG/DL) 218 H LDL Cholesterol, Calc (65 - 129 mg/dL) 133 H HDL Cholesterol (40 - 60 mg/dL) 35 L Cholesterol/HDL Ratio (0.00 - 4.23 %) 6 H Cortisol AM Sample (4.46 - 22.7 ug/dL) 5.5 Hematology CBC w Diff NO MAN DIFF REQ WBC (4.8 - 10.8 /CUMM) 9.8 RBC (4.20 - 5.40 /CUMM) 4.59 Hgb (12.0 - 16.0 G/DL) 13.8 Hct (37 - 47 %) 40.9 MCV (81.0 - 99.0 FL) 89.2 MCH (27.0 - 31.0 PG) 30.2 MCHC (33.0 - 37.0 G/DL) 33.8 RDW (11.5 - 14.5 %) 13.4 Plt Count (130 - 400 /CUMM) 326 MPV (7.4 - 10.4 FL) 7.2 L Gran % (42.2 - 75.2 %) 67.1 Lymphocytes % (20.5 - 51.1 %) 25.6 Monocytes % (1.7 - 9.3 %) 5.8 Eosinophils % (0 - 5 %) 0.9 Basophils % (0.0 - 2.0 %) 0.6 Absolute Granulocytes (1.4 - 6.5 /CUMM) 6.6 H Absolute Lymphocytes (1.2 - 3.4 /CUMM) 2.5 Absolute Monocytes (0.10 - 0.60 /CUMM) 0.6 Absolute Eosinophils (0.0 - 0.7 /CUMM) 0.1 Absolute Basophils (0.0 - 0.2 /CUMM) 0.1 Assessment/Plan Assessment/Plan This patient entered the hospital with episode of severe vertigo. She continues to have imbalance upon movement and describes the room turning around. Of concern also is the patient feels this has affected her memory. The patient has been seen by neurology who feels this is consistent with benign positional vertigo. With regard to her cortisol level, this was drawn at 1 AM. This is actually a normal to slightly elevated cortisol level for that time of day. The ac of cortisol secretion is midnight. We can do a Cortrosyn stimulation test giving 1 ampule of Cortrosyn IV bolus and flushing it in. Thereafter we should measure the patient's cortisol level 1 hour later. Most likely this will be completely normal. I do not feel this patient has adrenal insufficiency. The patient does have some enlargement of the right lobe of her thyroid. She also has a family history of thyroid disease. We should do an ultrasound of the thyroid. In addition we should measure the patient's free T4, TSH, and antithyroglobulin and antithyroid peroxidase antibodies. With regard to her decreased memory we should a Mini-Mental status exam. We should also do a vitamin B12 level as well as the thyroid function tests mentioned above. Consult Acknowledgment - Thank you for your consult request.
--- NOTE | 2017-08-29 11:37 | ULTRASOUND REPORT ---
EXAMINATION: US DUPLEX BILATERAL CAROTID CLINICAL INFORMATION: Dizziness. Question TIA.. COMPARISON: No similar prior examinations available for comparison. TECHNIQUE: Real-time ultrasound and Doppler techniques (integrating B-mode 2D vascular images, Doppler spectral analysis and color flow Doppler imaging) were utilized to interrogate the extracranial carotid and vertebral arteries bilaterally. The degree of stenosis determined by criteria similar to NASCET. FINDINGS: Right side: 1. Small amount of hypoechoic plaque is seen in the ECA/ICA region. 2. The common carotid artery velocity is 57 cm/s. 3. The internal carotid artery velocities are 44 cm/s systolic and 20 cm/s diastolic. 4. The external carotid artery velocity is 96 cm/s. Left side: 1. Small amount of calcified plaque is seen in the ECA/ICA region. 2. The common carotid artery velocity is 48 cm/s. 3. The internal carotid artery velocities are 67 cm/s systolic and 31 cm/s diastolic. 4. The external carotid artery velocity is 65 cm/s. ADDITIONAL FINDINGS: 1. The vertebral arteries show antegrade flow. 2. Incidentally noted is a 1.5 x 1.0 x 1.3 cm hypoechoic focus within the right parotid gland. IMPRESSION: 1. RIGHT: Minimal, nonhemodynamically significant stenosis of the proximal right internal carotid artery corresponding to a 0-49% stenosis by velocity criteria. 2. LEFT: Minimal, nonhemodynamically significant stenosis of the proximal left internal carotid artery corresponding to a 0-49% stenosis by velocity criteria. 3. No evidence for hemodynamically significant stenosis in the external carotid arteries. 4. A 1.5 cm cystic structure was incidentally noted within the right parotid gland. This can be further evaluated with a dedicated ultrasound of this region if clinically indicated.
--- NOTE | 2017-08-29 12:27 | MRI REPORT ---
EXAMINATION MRA HEAD WITHOUT CONTRAST MRA NECK WITH AND WITHOUT CONTRAST CLINICAL INFORMATION: Dizziness. Assess for stroke. COMPARISON: CT scan of the head 08/28/2017. TECHNIQUE: 3D [id number] MR angiography was performed through the brain and axial source images were reviewed along with rotating MIPs. 2-D [id number] as well as bolus enhanced MR angiography was performed through the cervicocerebral vasculature. The degree of stenosis is based off NASCET criteria. Source images were reviewed along with MIPs. Angled MIPs and volumetric reconstructions were independently generated and archived by the 3D laboratory. Intravenous contrast: 8 mL Gadavist. FINDINGS: MRA NECK: There is a common origin of the left common carotid and brachiocephalic arteries off the aortic arch, which is a normal variant. The proximal arch vessels are nonstenotic. The vertebral arteries are codominant and both vertebral arteries are widely patent from their ostia until they berumen the dura. The common carotid arteries are widely patent. The carotid bifurcations appear normal. There is no significant stenosis. The cervical internal carotid arteries demonstrate uniform and normal caliber. MRA HEAD: In the anterior circulation, the distal internal carotid arteries within the neck appear normal. The intracranial internal carotid arteries and their bifurcations appear normal. The middle and anterior cerebral arteries bilaterally demonstrate normal caliber with no evidence of focal stenosis, aneurysm or vascular malformation. Normal arborization of the middle cerebral artery branches. The anterior communicating artery is normal. In the posterior circulation, the left vertebral artery is slightly dominant. The vertebral arteries intradurally have normal caliber. The basilar artery appears normal. The left posterior cerebral artery arises primarily off the anterior circulation, which is a normal variant. The posterior cerebral arteries have normal caliber. IMPRESSION: 1. No focal stenoses, aneurysms or vascular malformations are demonstrated in the cervical or intracranial vasculature.
--- NOTE | 2017-08-29 12:29 | ECHOCARDIOGRAM REPORT ---
ERIC STACK Age: 71 : 1945 Gender: F Exam Date: 08/28/2017 09:34 Exam Location: 1 [facility] Ht (in): 66 Wt (lb): 178 BSA: 1.96 BP: 146 / 94 Ordering Physician: Lise Gonsales MD Referring Physician: Lise Gonsales MD Technologist: Ifrah De JULISSA Room Number: 178 Indications: STROKE Rhythm: Sinus Technical Quality: Technically difficult study FINDINGS Left Ventricle Normal size left ventricle. Mild concentric left ventricular hypertrophy. Normal left ventricular ejection fraction visually estimated at >60%. No obvious regional wall motion abnormalities. Right Ventricle Normal right ventricular size and function. Right Atrium Normal right atrial size. Left Atrium Normal left atrial size. Mitral Valve Mild mitral annular calcification. Mitral valve thickened. Trace mitral regurgitation. Aortic Valve Aortic valve mildly thckened.no aortic stenosis. No aortic regurgitation. Tricuspid Valve Tricuspid valve not well visualized, grossly normal. Trace tricuspid regurgitation. Pulmonic Valve Pulmonic valve not well visualized, grossly normal. Trace pulmonic regurgitation. Pericardium Small pericardial effusion. No echo evidence of tamponade. Great Vessels Normal size aortic root. CONCLUSIONS Normal size left ventricle. Mild concentric left ventricular hypertrophy. Normal left ventricular ejection fraction visually estimated at > 60%. Trace mitral regurgitation. Trace tricuspid regurgitation. Small pericardial effusion. No echo evidence of tamponade. Brandon Ritchie M.D. (Electronically Signed) Final Date: 29 August 2017 12:24 MEASUREMENTS (Male / Female) Normal Values 2D ECHO LV Diastolic Diameter PLAX 3.8 cm 4.2 - 5.9 / 3.9 - 5.3 cm LV Systolic Diameter PLAX 2.4 cm 2.1 - 4.0 cm LV Fractional Shortening PLAX 36.8 % 25 - 46 % LV Ejection Fraction 2D Teich 67.5 % IVS Diastolic Thickness 1.3 cm LVPW Diastolic Thickness 1.3 cm LV Relative Wall Thickness 0.7 RV Internal Dim ED PLAX 2.0 cm 1.9 - 3.8 cm LVOT Diameter 1.9 cm Aortic Root Diameter 3.1 cm LA Volume 36.0 cm 18 - 58 / 22 - 52 cm Ascending Aorta Diameter 3.2 cm DOPPLER AV Peak Velocity 136.0 cm/s AV Peak Gradient 7.4 mmHg AV Mean Velocity 89.7 cm/s AV Mean Gradient 4.0 mmHg AV Velocity Time Integral 29.2 cm LVOT Peak Velocity 101.0 cm/s LVOT Peak Gradient 4.1 mmHg LVOT Mean Velocity 67.0 cm/s LVOT Mean Gradient 2.0 mmHg LVOT Velocity Time Integral 24.6 cm LVOT Stroke Volume 69.7 cm AV Area Cont Eq vti 2.4 cm AV Area Cont Eq pk 2.1 cm MV Peak Velocity 92.2 cm/s MV Peak Gradient 3.4 mmHg MV Mean Velocity 47.2 cm/s MV Mean Gradient 1.0 mmHg Mitral E Point Velocity 74.0 cm/s Mitral A Point Velocity 74.5 cm/s Mitral E to A Ratio 1.0 MV PHT Velocity 83.9 cm/s MV Deceleration [place] 260.0 cm/s MV Pressure Half Time 96.8 ms MV Area PHT 2.3 cm MV Deceleration Time 261.0 ms PV Peak Velocity 67.2 cm/s PV Peak Gradient 1.8 mmHg PV Mean Velocity 49.1 cm/s PV Mean Gradient 1.0 mmHg PV Velocity Time Integral 15.3 cm LV E' Lateral Velocity 8.8 cm/s Mitral E to LV E' Lateral Ratio 8.4 LV E' Septal Velocity 8.3 cm/s Mitral E to LV E' Septal Ratio 8.9
[2017-08-29 14:18] VITALS: BP 150/80
--- NOTE | 2017-08-29 20:12 | ULTRASOUND REPORT ---
EXAMINATION: US THYROID CLINICAL INFORMATION: Right thyroid enlargement.. COMPARISON: None TECHNIQUE: Linear transducer pierson-scale and color Doppler examination with attention to the region of the thyroid. FINDINGS: Limited study as patient has severe vertigo and unable to changes head position or radiopaque were. Patient getting very dizzy. SIZE: Measurements of the thyroid lobes and nodules are given in sagittal, anteroposterior and transverse dimensions respectively. Right Thyroid Lobe: 3.7 x 1.0 x 1.2 cm, volume 2.3 mL. Left Thyroid Lobe: 3.8 x 1.3 x 1.4 cm, volume 3.6 mL. Isthmus: 0.3 cm in maximum AP dimension. PARENCHYMA: The gland echotexture is homogeneous. Thyroid vascularity is normal.. RIGHT THYROID LOBE: There is a solitary nodule in the lower pole. It measures 0.8 x 0.4 x 0.4 cm. It is heterogenous, irregular margins with no intranodular flow. ISTHMUS: No nodules. LEFT THYROID LOBE: Solitary nodule in the lower pole. It is hypoechoic, irregular margins with echogenic calcification and no intranodular flow. NODES: No lymphadenopathy is seen in the tissue surrounding the thyroid gland. IMPRESSION: 2 small subcentimeter none suspicious nodules thyroid gland. Otherwise unremarkable thyroid ultrasound. Recommend continued yearly ultrasound surveillance.
[2017-08-29 22:00] VITALS: BP 112/70
--- NOTE | 2017-08-30 07:05 | PN- Housestaff ---
Dania Arevalo 08/30/17 0705: Subjective Follow-up For: BPV Complaints: no complaints Tele-Events Since Last Visit: Mode sinus rhythm. Heart rate 57-69 Subjective: She complains of some dizziness when getting up from the bed. But it is very much improved. Review of Systems Constitutional: Reports: see HPI. Objective Last 24 Hrs of Vital Signs/I&O Vital Signs Date Time Temp Pulse Resp B/P B/P Pulse O2 O2 Flow FiO2 Mean Ox Delivery Rate 08/30 0706 97.9 71 18 138/86 95 08/29 2200 98.4 74 20 112/70 96 Room Air Intake & Output 08/30 1600 08/30 0800 08/30 0000 Intake Total 580 800 480 Output Total Balance 580 800 480 Intake, IV 20 Intake, Oral 560 800 480 Physical Exam General Appearance: Alert, Oriented X3, Cooperative, No Acute Distress Skin: No Rashes, No Breakdown, No Significant Lesion HEENT: Atraumatic Neck: Supple Cardiovascular: Regular Rate, Normal S1, Normal S2, No Murmurs Lungs: Clear to Auscultation, Normal Air Movement Abdomen: Normal Bowel Sounds, Soft, No Tenderness Neurological: Normal Gait, Normal Speech, Strength at 5/5 X4 Ext, Normal Tone Extremities: No Clubbing, No Cyanosis, No Edema Assessment/Plan Assessment: Pt is a 71-year-old lady with PMH of glaucoma and abdominal aortic aneurysm, presents with dizziness x1day. She tried to get up from bed upon waking and felt v dizzy, felt the whole room was upside down. She also blacked out for a few seconds but never lost consciousness. The daughter also mentions "to and fro " motion of her eyes and feeling tired and lethargic afterwards. The Episode lasted for 20-30 minutes and her dizziness got better but never went away completely. The episodes of dizziness have been going on for the past 8 mo. Vitals: Temp 97.9, pulse 71, respiratory rate 18, BP 138/86, 95% On room air Problems: 1. BPV 2. Orthostatic hypotension 3. Rt thyroid lobe enlargement 4. Parotid gland cystic lesion Plan: -She is off tele -discharge today care physician -Lifestyle changes, thigh-high compression stockings recommended after discharge -Meclizine as needed after discharge for vertigo -Diet: regular -DVT Prophylaxis; ALPS and S/C Lovenox -code:full code Problem List: 1. Vertigo Pain Ratin Pain Location: None Pain Goal: Remain pain free Pain Plan: n/a Tomorrow's Labs & Rationales: manny Álvarez MD,Jamie 08/30/17 1147: Attending MD Review Statement Attending Statement Attending MD Statement: examined this patient, discuss w/resident/PA/FIBERGLASS TECHNICIAN, agreed w/resident/PA/FIBERGLASS TECHNICIAN, reviewed EMR data (avail), discussed with nursing, discussed with case mgmt, amended to note Attending Assessment/Plan: Patient seen and examined. This morning she continued to complain of dizziness with movement. She also complained of dizziness at rest. She was seen by the physical therapy service and Shabana maneuver was performed. She was reported significant improvement. She is very excited and eager to go home. The pain of her dizziness was impeded secondary to BPPV. she is medically stable to be discharged home with prescribed Antivert to use as needed in the future. She still has orthostatic blood pressure changes. she is not volume depleted. We have recommended that she use compression stockings. She is to follow-up with her primary care provider as an outpatient. She has been given referral to Dr. brasher for follow-up as she wishes to change her primary care provider. She had an appropriate response to cosyntropin stimulation. She certainly does not have primary adrenal insufficiency. She also does not have stigmata of secondary adrenal insufficiency. She was noted to have small new nodules on the thyroid gland which appeared benign. She is to follow-up with endocrinology service for abnormal sonogram imaging. She is also to follow-up with the ENT service as an outpatient for further incidentally noted parotid cyst.
[2017-08-30 07:06] VITALS: BP 138/86
--- NOTE | 2017-08-30 07:45 | PN- Endocrinology ---
Assessment/Plan Endoscopy Assessment: The patient is feeling improved. She did have a Cortrosyn stimulation test yesterday and her cortisol post stimulation was 22.3. This is a normal response. We have ruled out adrenal insufficiency. The ultrasound of the patient's thyroid shows some tiny nodules none of which are suspicious. The function of the thyroid is normal. Plan: Suggest that the patient have a repeat thyroid ultrasound in one year as an outpatient. No further workup is necessary from the endocrine point of view. Subjective Subjective: Feels improved Review of Systems Constitutional: Denies: chills, fever. Cardiovascular: Denies: chest pain. Respiratory: Denies: cough, short of breath. Gastrointestinal: Denies: abdominal pain, nausea. Objective Last 24 Hrs of Vital Signs/I&O Vital Signs Date Time Temp Pulse Resp B/P B/P Pulse O2 O2 Flow FiO2 Mean Ox Delivery Rate 08/30 07 97.9 71 18 138/86 95 07/ 2200 98.4 74 20 112/70 96 Room Air 08/29 1418 97.9 78 18 150/80 95 Room Air Intake & Output 08/30 0800 07 0000 08/29 1600 Intake Total 480 600 Output Total Balance 480 600 Intake, Oral 480 600 Vital Signs Date Time Temp Pulse Resp B/P B/P Pulse O2 O2 Flow FiO2 Mean Ox Delivery Rate 08/30 0706 97.9 71 18 138/86 95 / 2200 98.4 74 20 112/70 96 Room Air 07/ 1418 97.9 78 18 150/80 95 Room Air Intake & Output 08/30 0800 08/30 0000 / 1600 Intake Total 480 600 Output Total Balance 480 600 Intake, Oral 480 600 Physical Exam General Appearance: alert, awake, comfortable Neck: normal inspection Respiratory: normal breath sounds Cardiovascular: regular rate/rhythm Current Medications: Current Medications Sig/Koki Start time Last Medication Dose Route Stop Time Status Admin Acetaminophen 650 MG Q6P PRN 08/28 0500 AC PO Cosyntropin 0.25 MG 1200 08/29 1200 DC 08/29 IV 08/29 1201 1220 Enoxaparin Sodium 40 MG DAILY 08/28 899 AC 08/29 SC 0903 Nicotine 14 MG DAILY 08/29 899 AC 08/29 TOP 1143 Patient Medication 1 ED ONE ONE 08/29 1245 IN 08/30 Teaching ED 08/29 1246 0659 Results Pertinent Lab/Fareed Results: Laboratory Tests 08/29 08/29 08/29 1320 1145 1100 Chemistry Vitamin B12 (239 - 931 pg/mL) 576 Folate (2.76 - 20.0 ng/mL) 10.7 Cortisol PM Sample (1.7 - 14.1) 22.3 H 5.1 ACTH Stimulation Cancelled 08/29 08/28 0628 1325 Chemistry Sodium (137 - 145 mmol/L) 144 Potassium (3.5 - 5.1 mmol/L) 4.5 Chloride (98 - 107 mmol/L) 110 H Carbon Dioxide (22 - 30 mmol/L) 24 Anion Gap (5 - 16) 10 BUN (7 - 17 mg/dL) 14 Creatinine (0.5 - 1.0 mg/dL) 0.6 Estimated GFR (>60 ml/min) > 60 BUN/Creatinine Ratio (7 - 25 %) 23.3 Troponin I (< 0.11 ng/ml) < 0.01 Triglycerides (<150 mg/dL) 182 H Cholesterol (<200 MG/DL) 197 LDL Cholesterol, Calc (65 - 129 mg/dL) 131 H HDL Cholesterol (40 - 60 mg/dL) 30 L Cholesterol/HDL Ratio (0.00 - 4.23 %) 7 H TSH (0.270 - 4.200 uIU/mL) 1.020 Free T4 (0.78 - 2.44 ng/dL) 1.02 Hematology CBC w Diff NO MAN DIFF REQ WBC (4.8 - 10.8 /CUMM) 5.8 RBC (4.20 - 5.40 /CUMM) 4.51 Hgb (12.0 - 16.0 G/DL) 13.6 Hct (37 - 47 %) 39.7 MCV (81.0 - 99.0 FL) 88.1 MCH (27.0 - 31.0 PG) 30.2 MCHC (33.0 - 37.0 G/DL) 34.3 RDW (11.5 - 14.5 %) 13.5 Plt Count (130 - 400 /CUMM) 288 MPV (7.4 - 10.4 FL) 7.5 Gran % (42.2 - 75.2 %) 51.2 Lymphocytes % (20.5 - 51.1 %) 38.2 Monocytes % (1.7 - 9.3 %) 8.7 Eosinophils % (0 - 5 %) 1.3 Basophils % (0.0 - 2.0 %) 0.6 Absolute Granulocytes (1.4 - 6.5 /CUMM) 3.0 Absolute Lymphocytes (1.2 - 3.4 /CUMM) 2.2 Absolute Monocytes (0.10 - 0.60 /CUMM) 0.5 Absolute Eosinophils (0.0 - 0.7 /CUMM) 0.1 Absolute Basophils (0.0 - 0.2 /CUMM) 0 Immunology Thyroglobulin Antibody (< 61 U/mL) 32 Thyroid Peroxidase Ab (< 61 U/mL) 35
--- NOTE | 2017-08-30 08:15 | Patient Discharge Instructions ---
Discharge Instructions General Discharge Information You were seen/treated for: Benign positional vertigo Watch for these problems: vertigo If worse, please visit your nearest emergency room Special Instructions: -Please have a repeat thyroid ultrasound in one year as an outpatient. -Please see your primary care physician within a week of discharge: Dr. Rob at [facility] -F/u with Occupational Therapy Diet Continue normal diet: Yes Activity Full Activity/No Limits: Yes (As tolerated ) Activity Self Limited: Yes Acute Coronary Syndrome Inclusion Criteria At DC or during hospital stay patient has or had the following: ACS DIAGNOSIS No Discharge Core Measures Meds if any: Prescribed or Continued at Discharge Meds if any: NOT Prescribed or Continued at Discharge Congestive Heart Failure Inclusion Criteria At DC or during hospital stay patient has or had the following: CHF DIAGNOSIS No Discharge Core Measures Meds if any: Prescribed or Continued at Discharge Meds if any: NOT Prescribed or Continued at Discharge Cerebrovascular accident Inclusion Criteria At DC or during hospital stay patient has or had the following: CVA/TIA Diagnosis No Discharge Core Measures Meds if any: Prescribed or Continued at Discharge Meds if any: NOT Prescribed or Continued at Discharge Venous thromboembolism Inclusion Criteria VTE Diagnosis No VTE Type NONE VTE Confirmed by (Test) NONE Discharge Core Measures - Per Current guidelines, there needs to be overlap - treatment for the first 5 days of Warfarin therapy. - If discharged on Warfarin prior to 5 days of - overlap therapy, the patient will need to be - assessed for post discharge needs including - *Post discharge parental anticoagulation - *Warfarin and/or parental anticoagulation education - *Follow up date to check INR post discharge At least 5 days overlap therapy as Inpatient No Meds if any: Prescribed or Continued at Discharge Note: Overlap Therapy is Warfarin and Anticoagulant Meds if any: NOT Prescribed or Continued at Discharge
[2017-08-30] MEDS ORDERED: MECLIZINE HCL12.5 M1 PO ×2 (11:25→11:47)
[2017-08-30] MEDS ORDERED: NICOTINE PATCH1 EAC2 TOP (11:47)
--- NOTE | 2017-08-30 16:20 | Discharge Summary ---
Visit Information Visit Dates Admission Date: 08/28/17 Discharge Date: 08/30/17 Hospital Course Course Attending Physician: Jamie Álvarez MD Primary Care Physician: Dr. Rob Hospital Course: Ms. Welch is a pleasant 71-year-old female with a past medical history of aortic aneurysm and glaucoma. She presented to the ED after having a "dizzy spell/mini stroke". She woke up the morning of August 28 and when she was getting out of bed she felt a sudden sense of the world spinning so dramatic that she had to lie back down for about 30 minutes. She then got up and tried to go to the bathroom and had considerable trouble due to the dizziness. She noticed that her speech was much slower than normal and that it took a significant amount of time to find words compared to her baseline. Her daughters also agreed that her speech and idea-formation was delayed. She was aware of the impediement and denies any confusion. She has been having palpitations for the past 2 weeks. She also believed that she has been experiencing vertigo on and off for the past 8 months symptoms were never bad like today. She endorsed a slight headache , fatigue and neck pain. She also had some blurry vision that she believed is related to her glaucoma which she started taking medication for 3 days ago, patient denies any nausea, vomiting, weakness, numbness, chest pain, shortness of breath, loss of consciousness, loss of bladder or bowel functions. Patient has a significant family history of strokes especially on the mother's side. Problem list: Benign paroxysmal positional vertigo Hospital course: No events on telemetry monitoring. She reported that her dizziness was worse with position changes. she had nystagmus following [place]-Hallpike maneuver. Given her positive orthostatic that was a possible adrenal insufficiency suspicion. Patient had cosyntropin stimulation test came back normal. Patient also had thyroid ultrasound which showed a nodule in her thyroid and also 1.5 cm nodule in her parotid gland. Patient was advised to follow-up with her primary care physician for the right parotid gland lesion She had orthostatic hypotension. So we recommended wearing thigh-high compression stockings and following up with her primary care physician. She will continue doing occupational therapy as outpatient for her vertigo. She will follow-up with the repatcher for the thyroid nodule found on her sonogram. She was given meclizine as needed per oral Allergies: Coded Allergies: No Known Allergies (08/18/17) Significant Procedures: Head CT: No acute intracranial pathology. Echocardiogram: Normal size left ventricle. Mild concentric left ventricular hypertrophy. Normal left ventricular ejection fraction visually estimated at > 60%. Trace mitral regurgitation. Trace tricuspid regurgitation. Small pericardial effusion. No echo evidence of tamponade. Carotid Doppler study: 1. RIGHT: Minimal, nonhemodynamically significant stenosis of the proximal right internal carotid artery corresponding to a 0-49% stenosis by velocity criteria. 2. LEFT: Minimal, nonhemodynamically significant stenosis of the proximal left internal carotid artery corresponding to a 0-49% stenosis by velocity criteria. 3. No evidence for hemodynamically significant stenosis in the external carotid arteries. 4. A 1.5 cm cystic structure was incidentally noted within the right parotid gland. This can be further evaluated with a dedicated ultrasound of this region if clinically indicated. Head MRI/neck MRA: No focal stenoses, aneurysms or vascular malformations are demonstrated in the cervical or intracranial vasculature. Thyroid ultrasound: 2 small subcentimeter none suspicious nodules thyroid gland. Otherwise unremarkable thyroid ultrasound. Recommend continued yearly ultrasound surveillance. Disposition Summary Disposition Principal Diagnosis: BPPV Additional Diagnosis: None Discharge Disposition: home or self care Discharge Instructions General Discharge Information Code Status: Full Code Patient's Diet: Regular diet Patient's Activity: As tolerated Follow-Up Instructions/Appts: Watch for these problems: -If dizziness is worse, please visit your nearest emergency room Special Instructions: -Please have a repeat thyroid ultrasound in one year as an outpatient. -Please see your primary care physician within a week of discharge: Dr. Rob at [facility] -F/u with physical therapy Medications at Discharge Discharge Medications: Start taking the following new medications: Meclizine HCl (Meclizine HCl) 12.5 MG TABLET 1 Tablet ORAL THREE TIMES DAILY as needed for VERTIGO Qty = 90 No Refills Instructions: . Nicotine (Nicotine Patch) 14 MG/24 HOUR PATCH.TD24 14 Milligram On the skin DAILY Qty = 30 No Refills Instructions: . Copies To: Liane JACKSON,Liane
== END 2017-08-30 12:15 | DRG 312 ==
LOC: ERH 23:11 → ERHI 08-28 03:29 → 1NO 08-28 03:29 → ENRESERV 08-28 04:35 → 1NO 08-28 04:54 → ENPENDDIS 08-30 11:26 → 1NO 08-30 12:15
PROVIDERS: Emergency Medicine; Hospitalist
DX: I95.1 Orthostatic hypotension (principal); H81.10 Benign paroxysmal vertigo, unspecified ear; H40.9 Unspecified glaucoma; R00.2 Palpitations; F41.9 Anxiety disorder, unspecified; E04.9 Nontoxic goiter, unspecified; F17.200 Nicotine dependence, unspecified, uncomplicated
CPT/HCPCS: 1NP; 70555; 70563; 36415; 36592; 82436; 86376; 86800; 93005; 93010; 93306; 97112-GO; 97116-GO; 97162-GP; A9579; J0834; J1650; J3360